=== PATIENT | female | born 1965 | race African-American/Black ===

== ENCOUNTER 2019-01-16 12:36 | Emergency (ER) | payer BC ==
[~2019-01-16] VITALS: Ht 180.3 cm; Wt 96.2 kg
--- NOTE | 2019-01-16 13:05 | Emergency Room Report ---
History of Present Illness General Chief Complaint: Lower Extremity Injury Source: Patient Present Illness HPI The patient is a 53-year-old female presenting for left knee pain. She states that she was at work and fell onto both knees approximately 6 weeks prior. She states that the pain was not significant enough to be evaluated but has been gradually increasing. Pain is now an 8 out of 10 dull ache primarily to the left middle portion of the knee. Worse with movement such as walking. She denies previous injury to the knee. She has not taken any pain medications. She denies any other injury or symptoms Allergies: Coded Allergies: No Known Allergies (Unverified , 01/16/19) Patient History Past Medical History: see triage record Pertinent Family History: none Reviewed Nursing Documentation: PMH: Agreed; PSxH: Agreed Review of Systems All Other Systems: negative except mentioned in HPI Physical Exam Vital Signs Date Time Temp Pulse Resp B/P (MAP) Pulse Ox O2 Delivery O2 Flow Rate FiO2 01/16/19 12:59 98.1 85 19 129/92 95 Room Air Sp02 EP Interpretation: reviewed, normal General Appearance: no apparent distress, alert, GCS 15, non-toxic Head: normocephalic, atraumatic Musculoskeletal: back normal, gait/station normal, normal range of motion, tender - L medial knee Neurologic: alert, oriented x3, responsive, motor strength/tone normal, sensory intact, speech normal Psychiatric: judgement/insight normal, memory normal, mood/affect normal, no suicidal/homicidal ideation Skin: normal color, no rash, warm/dry, well hydrated Procedures Splinting Splinting : Consent: Verbal Location: L knee Pre-Made Type: WESLEY wrap Pre-Proc Neuro Vasc Exam: normal Post-Proc Neuro Vasc Exam: normal Patient Tolerated: Well Complications: None Medical Decision Making PA Attestation Dr. Paz is my supervising physician. Patient management was discussed with my supervising physician Diagnostic Impression: Primary Impression: Left knee sprain Qualified Codes: S83.92XA - Sprain of unspecified site of left knee, initial encounter ER Course The patient is a 53-year-old female presenting for left knee pain. Differential diagnosis considered but not limited to: Knee sprain, contusion, fracture, muscle strain, among others Physical exam: No apparent distress Left knee: No ecchymosis. No edema. Full active range of motion is intact. Normal gait No laxity No deformity noted There is tenderness to palpation over the medial aspect of the soft tissue only. Left knee Wesley wrap is placed Given Rice instructions She is told to follow-up with workers compensation for further evaluation and treatment. ER precautions given Last Vital Signs Date Time Temp Pulse Resp B/P (MAP) Pulse Ox O2 Delivery O2 Flow Rate FiO2 01/16/19 12:59 98.1 85 19 129/92 95 Room Air Status: improved Disposition: HOME, SELF-CARE Condition: Improved Scripts Ibuprofen* (MOTRIN*) 600 Mg Tablet 600 MG ORAL Q8H PRN for For Pain, #30 TAB 0 Refills Prov: JOSSUE KAUR 01/16/19 JOSSUE KAUR Jan 16, 2019 13:05
--- NOTE | 2019-01-16 13:11 | NUR ---
ED Nurse Note: C/O L KNEE PAIN. FELL A 6 WEEKS AGO AND NOW HAS DISCOMFORT WHEN WALKING. PT DENIES HEAD TRAUMA. SEEN BY TAMMY MARCUM. WILL CONTINUE TO MONITOR.
[2019-01-16] MEDS ORDERED: IBUPROFEN600 MG ORAL (13:25)
[2019-01-16 13:35] VITALS: BP 129/92
--- NOTE | 2019-01-16 13:35 | NUR ---
ER DISCHARGE NOTE: Patient is cleared to be discharged per ERMD, pt is aox4, on room air, with stable vital signs. pt was given dc and prescription instructions, pt was able to verbalize understanding, pt id band removed without complications. pt is able to ambulate with steady gait. pt took all belongings.ED
== END 2019-01-16 14:21 | disposition home or self-care (01) ==
LOC: EMR 13:17
DX: S83.92XA Sprain of unspecified site of left knee, initial encounter (principal); W19.XXXA Unspecified fall, initial encounter; Y92.9 Unspecified place or not applicable
CPT/HCPCS: 99282

== ENCOUNTER 2019-02-05 05:10 | Emergency (ER) | payer BC ==
[~2019-02-05] VITALS: Ht 180.3 cm; Wt 96.2 kg
[~2019-02-05 05:10] MED LIST: IBUPROFEN600 MG ORAL
[2019-02-05] MEDS ORDERED: NKM (05:17)
[2019-02-05 05:20] VITALS: BP 146/85
[2019-02-05] MEDS ORDERED: AUGMENTIN 875-1 EAC1 ORAL (05:49)
[2019-02-05 05:54] VITALS: BP 146/85
--- NOTE | 2019-02-05 22:11 | Emergency Room Report ---
History of Present Illness General Chief Complaint: Skin Rash/Abscess Source: Patient Present Illness HPI 53-year-old female presents ED for evaluation. Patient complaining of pain and swelling to the right thumb for 3 days. Pain is dull, 8 out of 10, nonradiating. Denies fevers or chills. Denies any discharge. Denies any recent injury. No other aggravating relieving factors. Denies any other associated symptoms Allergies: Coded Allergies: No Known Allergies (Unverified , 01/16/19) Patient History Past Medical History: none Past Surgical History: none Pertinent Family History: none Social History: Denies: smoking, alcohol use, drug use Last Menstrual Period: 07/2018 Now: No Immunizations: UTD Reviewed Nursing Documentation: PMH: Agreed; PSxH: Agreed Nursing Documentation-PMH Past Medical History: No History, Except For Review of Systems All Other Systems: negative except mentioned in HPI Physical Exam Vital Signs Date Time Temp Pulse Resp B/P (MAP) Pulse Ox O2 Delivery O2 Flow Rate FiO2 02/05/19 05:14 97.9 76 16 94 Room Air 02/05/19 05:20 146/85 Sp02 EP Interpretation: reviewed, normal General Appearance: no apparent distress, alert, GCS 15, non-toxic Head: normocephalic Eyes: bilateral eye normal inspection, bilateral eye PERRL ENT: normal ENT inspection Neck: normal inspection Respiratory: normal inspection Cardiovascular #1: normal inspection Gastrointestinal: normal inspection Rectal: deferred Genitourinary: no CVA tenderness Musculoskeletal: tender - R thumb Neurologic: alert, oriented x3, responsive, motor strength/tone normal, sensory intact, speech normal Psychiatric: normal inspection Skin: other - erythema surrounding nailbed Lymphatic: normal inspection Medical Decision Making Diagnostic Impression: Primary Impression: Paronychia ER Course Hospital Course 53-year-old F presents to ED s/p swelling R thumb no trauma Clinical course Patient placed on stretcher. After initial history is full exam reveals female in no acute distress. There is some erythema and induration surrounding the nailbed on the right thumb. Consideration for early stages of a paronychia however I do not identify any drainable section. Discussed findings with patient. We'll attempt conservative therapy with antibiotics and warm soaks. If symptoms do not resolve patient should return to ED for drainage of paronychia Patient displays understanding. Safe for discharge with close outpatient follow -up Diagnosis - paronychia Stable and discharged to home with prescription for augmentin. warm soaks. wound Care instructions given. Followup with PMD. Return to ED if any signs of infection develop Last Vital Signs Date Time Temp Pulse Resp B/P (MAP) Pulse Ox O2 Delivery O2 Flow Rate FiO2 02/05/19 05:54 97.9 16 146/85 94 Room Air 02/05/19 05:14 76 Status: improved Disposition: HOME, SELF-CARE Condition: Stable Scripts Amoxicillin/Potassium Clav 875-125* (AUGMENTIN 875-125 TABLET*) 1 Each Tablet 1 TAB ORAL TWICE A DAY, #14 TAB Prov: Ga Corbett MD 02/05/19 Patient Instructions: Paronychia, [id number] Additional Instructions: warm soaks. take antibiotics as directed. return to ED if symptoms recur/worsen Ga Corbett MD February 05, 2019 22:11
== END 2019-02-05 05:54 | disposition home or self-care (01) ==
LOC: EMR 05:39
DX: L03.011 Cellulitis of right finger (principal)
CPT/HCPCS: 99282

== ENCOUNTER 2019-04-17 02:38 | Emergency (ER) | payer BC, OTHER ==
[~2019-04-17] VITALS: Ht 180.3 cm; Wt 86.6 kg
[~2019-04-17 02:38] MED LIST changes: +AUGMENTIN 875-1 EAC1 ORAL; +NKM
--- NOTE | 2019-04-17 02:47 | NUR ---
ED Nurse Note: pt ambulated to ED c/o of right eye irritation x 3 days. pt denies scratching eye. per pt "I bought a 99 cent eyeliner, im not sure if that could be the reason"
[2019-04-17 02:49] VITALS: BP 145/93
[2019-04-17] MEDS ORDERED: POLYTRIM OP SOL10 ML RIGHT EYE (03:05)
[2019-04-17] MEDS ORDERED: METRONIDAZOLE500 MG ORAL (03:05)
--- NOTE | 2019-04-17 03:06 | Emergency Room Report ---
History of Present Illness General Chief Complaint: Eye Problems Source: Patient Present Illness HPI Is a 53-year-old female with no past medical history. She presents with 2 complaints. First complaint is right eye pain and swelling. She has some itchiness yesterday and woke up with the left upper lid swollen. No fever chills but no nausea no vomiting. Does have some discharge and tearing. Does not wear contact. Denies any other complaint. No blurry vision. Her second complaint is vaginal itching. This has been ongoing for a week. She denies any discharge. Denies any vaginal bleeding. She that she is sexually active again the last 2 weeks. She tried Vagisil and is not helping. She currently has applied some prior to arrival. Allergies: Coded Allergies: No Known Allergies (Unverified , 01/16/19) Patient History Past Medical History: see triage record, old chart reviewed Past Surgical History: none Pertinent Family History: none Social History: Denies: smoking Last Menstrual Period: 2018 Now: No Immunizations: other Reviewed Nursing Documentation: PMH: Agreed; PSxH: Agreed Nursing Documentation-PMH Past Medical History: No History, Except For Review of Systems Eye: Reports: eye pain, tearing, discharge; Denies: blurred vision ENT: Denies: ear pain, nose congestion, throat swelling Respiratory: Denies: cough, shortness of breath Cardiovascular: Denies: chest pain, palpitations Gastrointestinal: Denies: abdominal pain, diarrhea, nausea, vomiting Genitourinary: Reports: pain Musculoskeletal: Denies: back pain, joint pain Skin: Denies: rash Neurological: Denies: headache, numbness Endocrine: Denies: increased thirst, increased urine Hematologic/Lymphatic: Denies: easy bruising All Other Systems: negative except mentioned in HPI Physical Exam Vital Signs Date Time Temp Pulse Resp B/P (MAP) Pulse Ox O2 Delivery O2 Flow Rate FiO2 04/17/19 02:41 97.9 75 18 145/93 (110) 100 Room Air Vitals with high blood pressure Sp02 EP Interpretation: reviewed, normal General Appearance: well appearing, no apparent distress, alert Head: normocephalic, atraumatic Eyes: right eye other - Right upper eyelid with edema. There is a small internal stye.; bilateral eye PERRL, bilateral eye EOMI ENT: hearing grossly normal, normal pharynx Neck: full range of motion, supple, no meningismus Respiratory: chest non-tender, lungs clear, normal breath sounds Cardiovascular #1: regular rate, rhythm, no murmur Gastrointestinal: normal bowel sounds, non tender, no mass, no organomegaly, no bruit, non-distended Musculoskeletal: back normal, gait/station normal, normal range of motion Psychiatric: mood/affect normal Medical Decision Making Diagnostic Impression: Primary Impression: Hordeolum internum right upper eyelid Additional Impression: Vaginitis Qualified Codes: N76.0 - Acute vaginitis ER Course Patient with right upper eyelid edema and pain. She has internal stye. Will write for antibiotic drops. No evidence of foreign body. No evidence of orbital cellulitis. She also has a vaginitis. Unfortunately, she has Vagisil inside right now. This is most likely bacterial vaginosis since she just start to be sexually active again. I will put her on Flagyl. This will also cover for trichomonas. If continue to be a problem, she will need Pap smear and culture. Last Vital Signs Date Time Temp Pulse Resp B/P (MAP) Pulse Ox O2 Delivery O2 Flow Rate FiO2 04/17/19 02:49 97.9 75 18 145/93 100 Room Air Status: unchanged Disposition: HOME, SELF-CARE Condition: Stable Scripts Metronidazole* (FLAGYL*) 500 Mg Tablet 500 MG ORAL BID, #14 TAB Prov: Александр Valencia MD 04/17/19 Polymyxin/Trimethoprim (Polytrim Eye Drops) 10 Ml Drops 1 DROP RIGHT EYE Q4H, #10 ML Prov: Александр Valencia MD 04/17/19 Additional Instructions: Follow-up with your doctor in 2 to 3 days for recheck. Stop using Vagisil. If continue with itching, will need recheck. Return if worse. Александр Valencia MD Apr 17, 2019 03:05
[2019-04-17 03:09] VITALS: BP 137/89
--- NOTE | 2019-04-17 03:10 | NUR ---
ER DISCHARGE NOTE: Patient is cleared to be discharged per ERMD, pt is aox4, on room air, with stable vital signs. pt was given dc and prescription instructions, pt was able to verbalize understanding, pt id band removed. pt is able to ambulate with steady gait. pt took all belongings.
== END 2019-04-17 03:09 | disposition home or self-care (01) ==
LOC: EMR 03:00
DX: H00.021 Hordeolum internum right upper eyelid (principal); N76.0 Acute vaginitis
CPT/HCPCS: 99282

== ENCOUNTER 2019-04-28 10:08 | Emergency (ER) | payer BC, OTHER ==
[~2019-04-28] VITALS: Ht 165.1 cm; Wt 86.6 kg
[~2019-04-28 10:08] MED LIST changes: +METRONIDAZOLE500 MG ORAL; +POLYTRIM OP SOL10 ML RIGHT EYE
--- NOTE | 2019-04-28 10:30 | NUR ---
ED Nurse Note: pt c/o continued vaignal itchiness and discomfort. no fever no n/v.
--- NOTE | 2019-04-28 11:00 | Emergency Room Report ---
History of Present Illness General Chief Complaint: Vaginal Source: Patient Present Illness HPI 53-year-old female with no medical problems presents with vaginal itching for 2 weeks, was seen about a week ago, finished complete course of Flagyl, and reports her symptoms are still bothering her. She denies abnormal discharge, does report she is recently resumed sexual activity with a new partner. She denies any urinary symptoms fevers chills, abdominal pain. Allergies: Coded Allergies: No Known Allergies (Unverified , 01/16/19) Patient History Past Medical History: see triage record Last Menstrual Period: 2 years ago Reviewed Nursing Documentation: PMH: Agreed; PSxH: Agreed Nursing Documentation-PMH Past Medical History: No History, Except For Review of Systems All Other Systems: negative except mentioned in HPI Physical Exam Vital Signs Date Time Temp Pulse Resp B/P (MAP) Pulse Ox O2 Delivery O2 Flow Rate FiO2 04/28/19 10:11 98.2 78 16 124/74 (91) 99 Room Air Sp02 EP Interpretation: reviewed, normal General Appearance: no apparent distress, alert, non-toxic Head: normocephalic Eyes: bilateral eye normal inspection, bilateral eye PERRL, bilateral eye EOMI ENT: normal ENT inspection, hearing grossly normal, normal pharynx, no angioedema, normal voice, moist mucus membranes Neck: normal inspection, full range of motion, supple, supple/symm/no masses Respiratory: chest non-tender, lungs clear, normal breath sounds, chest symmetrical, palpation of chest normal Cardiovascular #1: normal peripheral pulses, regular rate, rhythm Cardiovascular #2: 2+ radial (R), 2+ radial (L) Gastrointestinal: normal inspection, non tender, soft, no mass, no guarding, no rebound Rectal: deferred Genitourinary: normal inspection, no CVA tenderness, cervix normal, ext genitalia/vag normal, os closed, urethra normal, uterus normal - ANGE Mendez at bedside Musculoskeletal: back normal, gait/station normal, normal range of motion, non- tender, no calf tenderness Neurologic: alert, responsive, hand alterations tailor III-XII nml as tested, motor strength/tone normal, sensory intact, speech normal Psychiatric: judgement/insight normal, memory normal, mood/affect normal, no suicidal/homicidal ideation Lymphatic: no adenopathy Medical Decision Making Diagnostic Impression: Primary Impression: Vaginitis ER Course Exam reveals no yeast infection, no cervical or vaginal masses or lesions. No obvious discharge. No CMT or adnexal masses. Will discharge patient with prescriptions for Macrobid, fluconazole. Also treated for chlamydia and gonorrhea here with Rocephin and azithromycin. Patient instructed to follow-up with PMD in 2 weeks for routine checkup as well as referral for Pap smear, patient explained that normal examination does not rule out cancers and she still needs to have a Pap smear performed, also recommend avoidance of sexual intercourse for 1 week until you are able to follow-up on GC chlamydia swabs and she is able to go follow-up with PMD for further testing. Last Vital Signs Date Time Temp Pulse Resp B/P (MAP) Pulse Ox O2 Delivery O2 Flow Rate FiO2 04/28/19 10:11 98.2 78 16 124/74 (91) 99 Room Air Disposition: HOME, SELF-CARE Condition: Stable Referrals: [facility],REFERRING (PCP) RAY ARMAS M.D Apr 28, 2019 11:00
--- NOTE | 2019-04-28 11:17 | NUR ---
ED Nurse Note: pt awaiting pelvic exam by
[2019-04-28 11:33] VITALS: BP 124/74
[2019-04-28] MEDS ORDERED: FLUCONAZOLE100 MG ORAL (11:34)
[2019-04-28] MEDS ORDERED: NITROFURANTOIN100 M2 ORAL (11:34)
--- NOTE | 2019-04-28 11:34 | NUR ---
ED Nurse Note: pt with pelvic exam done by md with rn assist. samples sent as ordered
[2019-04-28] MEDS ORDERED: Azithromycin 250mg tab ORAL ONE (11:45)
[2019-04-28] MEDS ORDERED: Lidocaine 1% MPF 10mg/ml 5ml INJ ONE (11:45)
[2019-04-28 11:46] LABS: APPEARANCE,URINE CLEAR; BILIRUBIN, URINE NEGATIVE (NEGATIVE); COLOR,URINE PALE YELLOW; GLUCOSE, URINE (UA) 4+ (NEGATIVE); KETONES,URINE 1+ (NEGATIVE); LEUKOCYTE ESTERASE ,URINE 1+ (NEGATIVE); NITRITE,URINE NEGATIVE (NEGATIVE); PH,URINE 7 (4.5-8.0); PROTEIN,URINE NEGATIVE (NEGATIVE); UROBILINOGEN,URINE NORMAL MG/DL (0.0-1.0)
[2019-04-28 12:08] VITALS: BP 124/74
== END 2019-04-28 12:09 | disposition home or self-care (01) ==
LOC: EMR 10:36
DX: N76.0 Acute vaginitis (principal)
CPT/HCPCS: 81003; 87210; 87491; 87590; 96372; 99284; J0696